=== PATIENT | female | born 1950 | race Caucasian/White ===

== ENCOUNTER 2017-02-28 17:36 | Observation (INO) ==
--- NOTE | 2017-02-28 17:54 | EKG Report ---
Stationary ECG Study [facility] ER Test Date: 02/28/2017 5:54:45 PM Pat Name: FIFI FONG Department: Room: Gender: F [employer] Director: : 1950 Requested by: Bg Cruz Order Number: [id number] Reading MD: SAM FAJARDO Intervals [place] Rate: 96 P: 999 PA: 0 QRS: 51 QRSD: 90 T: 37 QT: 341 QTc: 394 Interpretive Statements ATRIAL FIBRILLATION Electronically Signed On 03-01-17 08:33:50 CDT by SAM FAJARDO [email or web address]
--- NOTE | 2017-02-28 19:07 | XRay Report ---
XR chest 2V Indication: Shortness of breath. Chest 2 views: No comparison. Heart size and mediastinal contour normal. Lungs are hypoinflated with elevation right hemidiaphragm. No discrete infiltrate. Pleural spaces are clear. Impression: Pulmonary hypoinflation. PROCEDURE INTERPRETED AT [facility] DEPARTMENT OF RADIOLOGY Final Report Signed by: Son Powell M.D.
[2017-02-28] MEDS ORDERED: ASPIRIN 325 MG TABLET PO STA (19:09)
[2017-02-28] MEDS ORDERED: ONDANSETRON 4 MG/2 ML VIAL IV STA (19:09)
[2017-02-28] MEDS ORDERED: FUROSEMIDE 100 MG/10 ML VIAL IV STA (19:09)
[2017-02-28] MEDS ORDERED: ALBUTEROL/IPRATROPIUM 3 ML NEB RESP TX STA (19:09)
[2017-02-28] MEDS ORDERED: methylPREDNISolone SOD SUC 125 MG/2 ML VIAL IV STA (19:09)
--- NOTE | 2017-02-28 19:21 | Emergency Department Note ---
Erik Sanford Rolonda, am scribing for, and in the presence of, Carroll Castro MD 19:19. Matthew Sanford Charles R, MD, personally performed the services described in this documentation, ascribed by Nubia Valencia in my presence, and it is both accurate and complete 921 . Arrival - Arrival Chief Complaint: Shortness of Breath Stated Complaint: SOB ED Nursing Triage Note: Pt c/o SOB with palpitations for several weeks but getting worse. Mode of Arrival: Wheelchair Limitations: No Limitations Source: Patient, Old Records Reviewed, RN Notes Reviewed - History of Present Illness HPI Narrative: Pt is a 66 y/o female who presents to the ED via wheelchair with a c/o SOB with an onset of a few weeks that is progressively worsening. Pt has a PMHx of Cardia Dysrhythmia. Pt states that she feels as if her heart has been out of rhythm within the past month and that she has AFib. Pt is f/u by Dr. Saunders who performed a stress test x1 year ago on the pt; results were negative for CAD. Pt states that she cannot ambulate from the bed to the kitchen without SOB occurring but can lay flat and on her side. Pt states that she does not sleep. Pt confirms that she is on Synthroid, Calan, Paxil, and Prednisone. No other complaint/pain reported by the pt. Onset (ago): week(s) Consistency: constant Severity: moderate Allergies/Adverse Reactions: Allergies Allergy/AdvReac Type Severity Reaction Status Date / Time cefuroxime [From Ceftin] Allergy Swelling Verified 02/28/17 17:40 of Lip/Tongue/Throat Cephalosporins Allergy Swelling Verified 02/28/17 17:40 of Lip/Tongue/Throat iodine Allergy RASH Verified 02/28/17 17:40 Oysters Allergy RASH Verified 02/28/17 17:40 povidone-iodine Allergy RASH Verified 02/28/17 17:40 [From Betadine] soap [From Betadine] Allergy RASH Verified 02/28/17 17:40 Sulfa (Sulfonamide Allergy ITCHING Verified 02/28/17 17:40 Antibiotics) Home Medications: Home Medications Medication Instructions Recorded Confirmed Type Levothyroxine Tab [Synthroid Tab] 50 mcg PO DAILY@0700 02/28/17 02/28/17 History Omeprazole 20 mg PO QAM 02/28/17 02/28/17 History PARoxetine [Paxil] 10 mg PO QAM 02/28/17 02/28/17 History Verapamil Sr Tab [Calan Sr Tab] 120 mg PO BEDTIME 02/28/17 02/28/17 History Verapamil Sr Tab [Calan Sr Tab] 240 mg PO QAM 02/28/17 02/28/17 History predniSONE TAB [PredniSONE] 10 mg PO QAM 02/28/17 02/28/17 History Review of System - Review of System 12 point system: reviewed and no additional remarkable complaints except as stated - Review of System Constitutional: Absent: chills Eyes: Absent: discharge Head/Ears/Nose/Throat: Absent: earache Respiratory: Present: respiratory distress (shortness of breath). Absent: cough Cardiovascular: Present: palpitations (feels as if heart is out of rhythm). Absent: chest pain Gastrointestinal: Absent: abdominal pain Genitourinary female: Absent: abnormal menses Musculoskeletal: Absent: arm pain Skin: Absent: rash Neurological: Absent: headache Psychiatric: Absent: anxiety Endocrine: Absent: cold intolerance Hematological/Lymphatic: Absent: easy bleeding Allergic/Immunologic: Absent: facial swelling Medical,Surgical,& Family Hx - Medical History Cardio: History of: Cardiac Dysrhythmia (svt) Musculoskeletal: History of: Musculoskeletal Problems (left humerus fx, shoulder dislocation, and rotator cuff tear) - Surgical History Reproductive Surgeries: Surgical HX of;: Hysterectomy (1987) - Social History Smoking Status: Never smoker Exam Vital Signs: Vital Signs Temperature 97.2 F L 02/28/17 18:38 Pulse Rate 110 H 02/28/17 18:38 Respiratory Rate 19 02/28/17 19:09 Blood Pressure 147/83 02/28/17 18:38 O2 Sat by Pulse Oximetry 95 02/28/17 18:23 - General General appearance: alert, in no apparent distress, obese (morbidly ) - Head Head exam: Present: atraumatic, normocephalic - Eye Eye exam: Present: normal appearance, PERRL, EOMI - ENT ENT exam: Present: normal exam, normal oropharynx, mucous membranes moist. Absent: mucous membranes dry - Neck Neck exam: Present: normal inspection, full ROM. Absent: tenderness - Chest Chest inspection: Present: normal inspection, symmetric chest wall rise. Absent : tenderness - Respiratory Respiratory exam: Present: rales (bilateral ), wheezes. Absent: normal lung sounds bilaterally - Cardiovascular Cardiovascular exam: Present: regular rate, tachycardia (extrasystole), normal heart sounds - Abdominal Exam Abdominal exam: Present: soft, normal bowel sounds. Absent: tenderness - Extremities Exam Extremities exam: Present: normal inspection (gross lesions on both feet), full ROM, pedal edema (2+ edema lower extremities ). Absent: tenderness - Back Exam Back exam: Present: normal inspection, full ROM. Absent: tenderness - Neurological Exam Neurological exam: Present: alert, oriented X3, CN II-XII intact - Psychiatric Psychiatric exam: Present: normal affect, normal mood. Absent: depressed - Skin Skin exam: Present: rash, diaphoresis (sweaty). Absent: warm Course Course Narrative: Patient is a negative workup. Patient has by history what sounds to be a pickwickian obstructive sleep apnea type syndrome. Will place her in the hospital for additional workup. Recommend outpatient sleep study. Patient has palpitation history history of SVT possibly atrial fib. EKG initially read out as atrial fib when I actually examine her which is a different time the second EKG when you feel her radial pulse and listened to her she is actually in sinus rhythm but she was not experience symptoms at this time - Consultations Consultation #1: Hospitalist will admit patient Time: 21:44 Results - Labs CBC & BMP: 02/28/17 19:37 02/28/17 19:37 Lab Results: I have reviewed the patients labs Labs: Laboratory Tests 02/28/17 19:09 ABG pH 7.404 ABG pCO2 40.7 ABG pO2 88.0 ABG HCO3 25.0 ABG Total CO2 21.3 L ABG O2 Saturation 96.6 ABG Base Excess 0.7 FiO2 28.00 Laboratory Tests 02/28/17 19:37 WBC 15.6 H RBC 5.17 Hgb 16.3 H Hct 48.3 H Plt Count 335 Lymph % (Auto) 19.7 L Neut # (Auto) 11.5 H Laboratory Tests 02/28/17 19:37 INR 1.0 PT Patient/Control Mix 10.0 D-Dimer, Quantitative 0.7 Laboratory Tests 02/28/17 19:37 Sodium 140 Potassium 4.5 Chloride 102 Carbon Dioxide 27 Anion Gap 15.5 H BUN 15 GFR Calculation 103 Globulin 3.9 H Albumin/Globulin Ratio 0.8 L Laboratory Tests 02/28/17 02/28/17 02/28/17 19:37 21:00 21:00 B-Natriuretic Peptide 69 Urine pH 5.0 Ur Specific [place] 1.011 Urine Protein Negative Urine Glucose (UA) Negative Urine Ketones Negative Urine Blood Small Urine Nitrate Negative Urine Bilirubin Negative Urine Urobilinogen < 2.0 H Urine Leukocytes Negative Urine RBC <1 Urine WBC 1 Hyaline Casts 2 Urine Opiates Screen Negative Ur Barbiturates Screen Negative Ur Phencyclidine Scrn Negative U Amphetamine/Methamph Negative U Benzodiazepines Scrn Negative U Cocaine Metab Screen Negative U Cannabinoids Screen Negative Disposition Clinical Impression: Exertional dyspnea, Palpitation, Morbid obesity, Chronic lesions foot, Paroxysmal a-fib Case discussed with: patient, patient's family Disposition: Still a Patient Condition: Stable Time of Disposition: 21:49
[2017-02-28 19:31] LABS: ABG Base Excess 0.7 MMOL/L (-2.5-2.5); ABG Oxygen Saturation 96.6 % (95-100); ABG PCO2 40.7 MM HG (35-48); ABG PH 7.404 (7.35-7.45); ABG TCO2 21.3 MMOL/L (23-27); Allen Test Positive
[2017-02-28] MEDS ORDERED: ASPIRIN 325 MG TABLET ONE (19:40)
[2017-02-28] MEDS ORDERED: NITROGLYCERIN 2% OINT 1 INCH/GM PACK TOP ONE (19:40)
[2017-02-28] MEDS: NITROGLYCERIN 2% OINT 1 INCH/GM PACK TOP STA ×2 (19:46→19:51)
[2017-02-28] MEDS ORDERED: FUROSEMIDE 20 MG/2 ML VIAL ONE (19:53)
[2017-02-28] MEDS ORDERED: ONDANSETRON 4 MG/2 ML VIAL ONE (19:53)
[2017-02-28] MEDS ORDERED: FUROSEMIDE 40 MG/4 ML VIAL ONE (19:54)
[2017-02-28] MEDS ORDERED: methylPREDNISolone SOD SUC 125 MG/2 ML VIAL ONE (19:54)
[2017-02-28 20:23] LABS: Basophils # 0.1 10*3/uL (0.0-0.2); Basophils % 0.4 % (0.0-0.8); Eosinophils % 0.3 % (0.00-10.9); Hematocrit 48.3 VOL% (35.7-47.0); Hemoglobin 16.3 GM/DL (12.0-16.0); Immature Granulocytes % 0.7 %; Immature Granulocytes Absolute 0.11 #; Lymphocytes # 3.1 10*3/uL (1.4-4.0); Lymphocytes % 19.7 % (21.3-54.2); Mean Corpuscular HGB Conc 33.7 GM/DL (32-36); Mean Corpuscular Hemoglobin 32 PG (27-34); Mean Corpuscular Volume 93.4 FL (87-102); Mean Platelet Volume 10.5 FL (9.6-12.0); Monocytes # 0.8 10*3/uL (0.11-0.8); Monocytes % 5.1 % (1.7-12.7); Neutrophils # 11.5 10*3/uL (1.4-7.4); Neutrophils % 73.8 % (38.7-73.9); Platelet Count 335 T/CUMM (130-400); Red Blood Count 5.17 MC/CUMM (3.8-5.5); Red Cell Distribution Width 12.7 % (9.3-17.3); White Blood Count 15.6 T/CUMM (4-12)
[2017-02-28 20:38] LABS: D-Dimer 0.7 MG/L FEU
[2017-02-28 20:44] LABS: Alanine Aminotransferase 41 U/L (13-56); Albumin 3.4 G/DL (3.4-5.0); Alkaline Phosphatase 99 U/L (45-117); Aspartate Amino Transferase 27 U/L (0-37); Bilirubin,Total < 0.39 MG/DL (0.2-1.0); Blood Urea Nitrogen 15 MG/DL (7-18); Calcium 9.9 MG/DL (8.5-10.1); Glucose 159 MG/DL (74-106); Magnesium 1.9 MG/DL (1.8-2.4); Osmolality,Calculated 282.4 MOS/KG (273-304); Potassium 4.5 MMOL/L (3.5-5.1); Sodium 140 MMOL/L (136-145); Total Protein 7.3 G/DL (6.4-8.3); Troponin I Only < 0.015 NG/ML (0.00-0.045)
[2017-02-28 21:10] LABS: Apearance,Urine CLEAR (Clear); Bacteria,Urine Occasional /HPF (Few); Bilirubin,Urine Negative (Negative); Blood, Urine Small mg/dL (Negative); Glucose,Urine (UA) Negative (Negative); Hyaline Casts,Urine 2 /LPF (0-3); Ketones,Urine Negative (Negative); Mucus,Urine Occasional /LPF (Occasional); Nitrite,Urine Negative (Negative); Protein,Urine Negative; RBC,Urine <1 /HPF (0-4); Squamous Epithelial Cell,Urine Occasional /HPF (0-10); Urine Color Yellow (Yellow); Urine Specific Gravity 1.011 (1.001-1.035); Urine Urobilinogen < 2.0 EU/DL (0.2-1.0); WBC,Urine 1 /HPF (0-6)
[2017-02-28 21:19] LABS: Barbiturates Screen,Urine Negative (Negative); Benzodiazepines Screen,Urine Negative (Negative); Cannabinoid Screen,Urine Negative (Negative); Opiate Screen,Urine Negative (Negative); Phencyclidine Screen,Urine Negative (Negative)
[2017-02-28] MEDS ORDERED: ONDANSETRON 4 MG/2 ML VIAL IV PRN (22:32)
[2017-02-28] MEDS ORDERED: ACETAMINOPHEN 325 MG TABLET PO PRN (22:32)
--- NOTE | 2017-02-28 22:47 | Hospitalist History & Physical ---
Assessment and Plan (1) Exertional dyspnea Status: Acute Current Visit: Yes (2) Palpitation Status: Acute Current Visit: Yes (3) Morbid obesity Status: Acute Current Visit: Yes (4) Paroxysmal a-fib Status: Acute Assessment and plan: Plan for this patient will be admission to our service. Will consult cardiology and sleep medicine. I want her heart evaluated with echo. Should be monitored on telemetry. This could be obesity hypoventilation syndrome. She has been a patient of Dr. Saunders. She does give a history of immune disease for which she is on prednisone daily. She reports that her white count is always elevated and that is been evaluated by her outside physician. Reevaluate patient in the morning check her thyroid and adjust plans as appropriate Current Visit: Yes History of Present Illness Chief complaint: Exertional dyspnea History of present illness: Ms. Rouse is a 66 year old female with past medical history significant for hypothyroid, reflux, hiatal hernia, SVT, immune deficiency, depression and anxiety who comes to our hospital tonight. Patient reports that she has been short of breath times several weeks and is progressively increased to a point that limits her activity. She feels that her heart is racing at times. She does have a history of SVT and she is on verapamil for this. This heart racing occurs both with exertion and rest. Valsalva maneuver does not stop it. She does not injure to chest pain. She came up to our hospital for further evaluation since her symptoms are getting worse. I was consulted to admit her through the emergency room. Home Medications Medication Instructions Recorded Confirmed Type Levothyroxine Tab [Synthroid Tab] 50 mcg PO DAILY@0700 02/28/17 02/28/17 History Omeprazole 20 mg PO QAM 02/28/17 02/28/17 History PARoxetine [Paxil] 10 mg PO QAM 02/28/17 02/28/17 History Verapamil Sr Tab [Calan Sr Tab] 120 mg PO BEDTIME 02/28/17 02/28/17 History Verapamil Sr Tab [Calan Sr Tab] 240 mg PO QAM 02/28/17 02/28/17 History predniSONE TAB [PredniSONE] 10 mg PO QAM 02/28/17 02/28/17 History Allergies Allergy/AdvReac Type Severity Reaction Status Date / Time cefuroxime [From Ceftin] Allergy Swelling Verified 02/28/17 17:40 of Lip/Tongue/Throat Cephalosporins Allergy Swelling Verified 02/28/17 17:40 of Lip/Tongue/Throat iodine Allergy RASH Verified 02/28/17 17:40 Oysters Allergy RASH Verified 02/28/17 17:40 povidone-iodine Allergy RASH Verified 02/28/17 17:40 [From Betadine] soap [From Betadine] Allergy RASH Verified 02/28/17 17:40 Sulfa (Sulfonamide Allergy ITCHING Verified 02/28/17 17:40 Antibiotics) Medical,Surgical,& Family Hx - Medical History Cardio: History of: Cardiac Dysrhythmia (svt) Musculoskeletal: History of: Musculoskeletal Problems (left humerus fx, shoulder dislocation, and rotator cuff tear) - Surgical History Reproductive Surgeries: Surgical HX of;: Hysterectomy (1987) - Family History Family History: Reports;: Family Cancer, Family Heart Disease, Family Stroke - Social History Smoking Status: Never smoker Frequency of Alcohol Use: None Type of Drug Use: None 12 point system: reviewed and no additional remarkable complaints except as stated Exam - Constitutional Vitals: Period Temp Pulse Resp BP Sys/Rowe Pulse Ox Last 24 Hr 97.2 F-98.8 F 104-110 19-24 130-147/83-87 95-96 General appearance: morbidly obese - Head Head exam: Present: normal inspection - Eye Eye exam: Present: EOMI Pupils: Present: CORRY - ENT ENT exam: Present: normal exam - Neck Neck exam: Present: normal inspection - Respiratory Respiratory exam: Present: clear to auscultation bilaterally - Cardiovascular Cardiovascular exam: Present: regular rate and rhythm - GI/Abdominal GI/Abdominal exam: Present: normal bowel sounds - Extremities Exam Extremities exam: Present: normal inspection - Back Exam Back exam: Present: normal inspection - Neurological Exam Neurological exam: Present: alert, oriented X3 - Psychiatric Psychiatric exam: Present: normal affect, normal mood - Skin Skin exam: Present: normal color Results - Labs CBC & BMP: 02/28/17 19:37 02/28/17 19:37
[2017-02-28] MEDS ORDERED: ENOXAPARIN 40 MG/0.4 ML SYRINGE SUBCUT SCH (23:00)
[2017-03-01] MEDS: VERAPAMIL SR 120 MG TABLET PO SCH ×2 (00:27→00:31)
[2017-03-01 05:27] LABS: Basophils % 0.2 % (0.0-0.8); Hematocrit 46.8 VOL% (35.7-47.0); Hemoglobin 15.7 GM/DL (12.0-16.0); Immature Granulocytes % 0.8 %; Immature Granulocytes Absolute 0.08 #; Lymphocytes # 1.1 10*3/uL (1.4-4.0); Lymphocytes % 10.8 % (21.3-54.2); Mean Corpuscular HGB Conc 33.5 GM/DL (32-36); Mean Corpuscular Hemoglobin 32 PG (27-34); Mean Corpuscular Volume 94.5 FL (87-102); Mean Platelet Volume 10.7 FL (9.6-12.0); Monocytes # 0.1 10*3/uL (0.11-0.8); Monocytes % 0.7 % (1.7-12.7); Neutrophils # 8.7 10*3/uL (1.4-7.4); Neutrophils % 87.5 % (38.7-73.9); Platelet Count 326 T/CUMM (130-400); Red Blood Count 4.95 MC/CUMM (3.8-5.5); Red Cell Distribution Width 12.8 % (9.3-17.3); White Blood Count 9.9 T/CUMM (4-12)
[2017-03-01 06:06] LABS: Alanine Aminotransferase 39 U/L (13-56); Albumin 3.4 G/DL (3.4-5.0); Alkaline Phosphatase 94 U/L (45-117); Aspartate Amino Transferase 18 U/L (0-37); Bilirubin,Total < 0.39 MG/DL (0.2-1.0); Blood Urea Nitrogen 18 MG/DL (7-18); Calcium 9.9 MG/DL (8.5-10.1); Cholesterol 186 MG/DL (50-200); Glucose 288 MG/DL (74-106); HDL Cholesterol 48 MG/DL (40-60); Osmolality,Calculated 289.5 MOS/KG (273-304); Potassium 4.9 MMOL/L (3.5-5.1); Risk Ratio 3.88; Sodium 139 MMOL/L (136-145); Thyroid Stimulating Hormone 0.177 uIU/ml (0.358-3.74); Total Protein 7.3 G/DL (6.4-8.3); Triglycerides 114 MG/DL (2-150); VLDL CHOLESTEROL 22.8 MG/DL
[2017-03-01] MEDS ORDERED: LEVOTHYROXINE 50 MCG TABLET PO SCH (07:00)
--- NOTE | 2017-03-01 08:55 | Cardiology Consult Note ---
Addendum entered and electronically signed by Maryellen Carter NP 03/01/17 09:02 : Hemoglobin of 7.0 noted. Patient is now newly diagnosed with diabetes. Patient will need diabetic education. Will defer management of this to attending. Original Note: <Maryellen Carter - Last Filed: 03/01/17 08:23> History of Present Illness - Data of Consult Patient: known to practice within the last 3 years Consult date: 03/01/17 Requesting Physician: Son Maldonado - Consult Narrative Reason for consult: afib History of present illness: [facility] Associate: Dr. Saunders Ms. Rouse is a 66 year old female without known history of coronary artery disease who has been seen in the past by Dr. Fatuma Saunders. She has cardiac risk factors significant for obesity, sedentary lifestyle and advanced age. She reports that she is a lifetime non-smoker. No significant family history of coronary artery disease. She has a past medical history of hypothyroidism, SVT, atrial flutter, GERD, anxiety and depression. She was evaluated by Dr. Fatuma Saunders in the cardiology clinic December 2015. At that time, she underwent cardiac stress testing which did not reveal any reversible cardiac ischemia. Echocardiogram November 2015 revealed normal LV chamber size, wall motion and systolic function with ejection fraction of 65%. Concentric left ventricular hypertrophy and impaired LV relaxation. During her last visit with Dr. Fatuma Saunders, her verapamil was increased. This helped her palpitations for several months. However however, several months later her palpitations and shortness of breath returned and has progressively worsened. She has not followed up with Dr. Fatuma Saunders since December 2015. Patient presented to the emergency department yesterday evening with complaints of shortness of breath and heart racing. She reports that she has been feeling that she has been in and out of rhythm for several months. She reports that she mainly feels that she is out of rhythm with activity. Normally, she can convert herself back to normal sinus rhythm with cough. However, lately she has not been able to do this. She reports severe shortness of breath as well, mainly with exertion. This has also progressively worsened over the past several months and now limits her activity. She reports shortness of breath with just walking from room to room in her house. She denies any chest pain, heaviness or tightness associated with this. She denies fever, chills, cough, abdominal pain, nausea, vomiting, lower extremity edema, orthopnea and PND. Due to her progressive symptoms, she decided she needed to be further evaluated in the emergency department. Upon arrival to the ER, she was noted to be in atrial fibrillation with a controlled ventricular response. Heart rates in the 90s. She was then admitted under hospitalist service and also telemetry unit. Cardiology has been consulted to assist with her fibrillation. Of note, patient reports snoring and excessive daytime sleepiness. This is concerning for underlying sleep apnea. Echo has been consulted per hospital medicine. Patient was seen and examined on the telemetry unit. She is currently sitting up on the side of the bed eating breakfast in no acute distress. Not requiring oxygen. Per pulp grinder and blender she is in normal sinus rhythm with heart rates in the 90s. Chest x-ray reveals pulmonary hyperinflation. Electrolytes are within normal limits. Patient has now spontaneously converted to normal sinus rhythm. At this point, will continue patient's home dosage of verapamil as patient is now converted back to a normal sinus rhythm. Will monitor patient on the pulp grinder and blender. Patient continues to go in and out of rhythm, we will consider changing patient's medication regimen. I will discuss this with Dr. Moses. Chads vasc score of 1. Patient does not report any contraindications to anticoagulation. I will further discuss with Dr. Moses and await his additional recommendations regarding the need for anticoagulation. ASSESSMENT/PLAN: 1. ATRIAL FIBRILLATION - Appears to be paroxysmal atrial fibrillation. Patient has now spontaneously converted to normal sinus rhythm. At this point, will continue patient's home dosage of verapamil as patient is now converted back to a normal sinus rhythm. Will monitor patient on the pulp grinder and blender. Patient continues to go in and out of rhythm, we will consider changing patient's medication regimen. I will discuss this with Dr. Moses. Chads vasc score of 1. Patient does not report any contraindications to anticoagulation. I will further discuss with Dr. Moses and await his additional recommendations regarding the need for anticoagulation. 2. SHORTNESS OF BREATH - Most likely secondary to patient's cardiac arrhythmias. I will order an echocardiogram in order to reevaluate patient's LV function as been over a year since her last echocardiogram. 3. HYPOTHYROIDISM - Management per attending. 4. GERD - Clinically stable. Continue PPI. 5. ANXIETY - Continue current plan of care. 5. DEPRESSION - Continue current plan of care. 6. HISTORY OF SVT - Continue verapamil. Monitor per telemetry. No episodes of SVT noted this hospitalization. 7. SLEEP DISORDER - Patient has admissions concerning for sleep apnea. Dr. Alves has been consulted. This could very well be contributing to patient' s cardiac arrhythmias. We will discuss with Dr. Moses and await his additional recommendations. CC: Costa Michaud MD - Home Medications and Allergies Home Medications: Home Medications Medication Instructions Recorded Confirmed Type Levothyroxine Tab [Synthroid Tab] 50 mcg PO DAILY@0700 02/28/17 02/28/17 History Omeprazole 20 mg PO QAM 02/28/17 02/28/17 History PARoxetine [Paxil] 10 mg PO QAM 02/28/17 02/28/17 History Verapamil Sr Tab [Calan Sr Tab] 120 mg PO BEDTIME 02/28/17 02/28/17 History Verapamil Sr Tab [Calan Sr Tab] 240 mg PO QAM 02/28/17 02/28/17 History predniSONE TAB [PredniSONE] 10 mg PO QAM 02/28/17 02/28/17 History Allergies/Adverse Reactions: Allergies Allergy/AdvReac Type Severity Reaction Status Date / Time cefuroxime [From Ceftin] Allergy Swelling Verified 02/28/17 17:40 of Lip/Tongue/Throat Cephalosporins Allergy Swelling Verified 02/28/17 17:40 of Lip/Tongue/Throat iodine Allergy RASH Verified 02/28/17 17:40 Oysters Allergy RASH Verified 02/28/17 17:40 povidone-iodine Allergy RASH Verified 02/28/17 17:40 [From Betadine] soap [From Betadine] Allergy RASH Verified 02/28/17 17:40 Sulfa (Sulfonamide Allergy ITCHING Verified 02/28/17 17:40 Antibiotics) - Constitutional Constitutional: Present: daytime sleepiness, fatigue, lethargy, stops breathing during sleep, weakness. Absent: chills, frequent falls - Cardiovascular Cardiovascular: Present: dyspnea, dyspnea on exertion, palpitations. Absent: chest pain at rest, chest pain with activity, claudication, diaphoresis, edema, radiating jaw, neck or arm pain, lightheadedness, orthopnea, PND - Respiratory Respiratory: Present: dyspnea, dyspnea on exertion, snoring. Absent: cough, hemoptysis, wheezing, pain on inspiration, change in phlegm color - Gastrointestinal Gastrointestinal: Absent: abdominal pain, change in bowel habits, coffee ground emesis, diarrhea, heartburn, hematemesis, hematochezia, loose stools, melena, nausea, vomiting - Neurological Neurological: Absent: abnormal gait, abnormal speech, behavioral changes, dizziness, frequent falls, headache(s), numbness, paresthesias, syncope - Psychiatric Psychiatric: Present: anxiety, depression - Hematologic/Lymphatic Hematologic/Lymphatic: Absent: easy bleeding, easy bruising, lymphadenopathy Medical,Surgical,& Family Hx - Medical History Cardio: History of: Cardiac Dysrhythmia (svt) Psychological: History of: Anxiety Disorders, Depression Endocrine: History of: Thyroid Disorder (HYPO) Gastrointestinal: History of: GERD Musculoskeletal: History of: Musculoskeletal Problems (left humerus fx, shoulder dislocation, and rotator cuff tear) - Surgical History Reproductive Surgeries: Surgical HX of;: Hysterectomy (1987) - Family History Family History: Reports;: Family Cancer, Family Stroke - Social History Smoking Status: Never smoker Frequency of Alcohol Use: None Type of Drug Use: None Marital Status: Single Lives With:: Spouse Functional capacity: independent ambulation Physical Examination Vital Signs Temp Pulse Resp BP Pulse Ox 97.2 F L 110 H 24 147/83 96 02/28/17 17:40 02/28/17 17:40 02/28/17 17:40 02/28/17 17:40 02/28/17 17:40 Other: General: Appears well with no apparent distress. Pleasant and cooperative. Appears comfortable. Obese. HEENT: PERRL, normocephalic, atraumatic. Mucous membranes moist. No jaundice noted. Conjunctiva moist and clear, sclerae anicteric Neck: No JVD/HJR, no thyromegaly or lymphadenopathy noted. No carotid bruit appreciated Cardiac: Regular rate and rhythm. No murmur rub or gallop. Lungs: Clear to auscultation without accessory muscle use to assist the respiratory pattern. Not requiring oxygen. Abdomen: Soft, bowel sounds normoactive. Nontender and nondistended. Extremities: No clubbing, cyanosis noted. No edema noted. Upper extremity pulses 2+. Lower extremity pulses 2+. Capillary refill less than 3 seconds. Skin: No unusual lesions or rashes. No skin breakdown appreciated. Neuro: Awake, alert and oriented 3. Moves all extremities well without hemiparesis or paralysis. No essential tremor is appreciated. Result/EKG - Labs CBC & BMP: 03/01/17 04:54 03/01/17 04:54 Lab Results: I have reviewed the past 24 hour labs Labs: Laboratory Results - last 24 hr 02/28/17 02/28/17 02/28/17 19:09 19:37 19:37 WBC 15.6 H RBC 5.17 Hgb 16.3 H Hct 48.3 H MCV 93.4 MCH 32 MCHC 33.7 RDW 12.7 Plt Count 335 MPV 10.5 Neut % (Auto) 73.8 Lymph % (Auto) 19.7 L [place] % (Auto) 5.1 Eos % (Auto) 0.3 Baso % (Auto) 0.4 Neut # (Auto) 11.5 H Lymph # (Auto) 3.1 [place] # (Auto) 0.8 Eos # (Auto) 0.0 Baso # (Auto) 0.1 Immature Gran % 0.7 Nucleated RBC % 0.0 Immature Gran # 0.11 Nucleated RBCs # 0.00 INR 1.0 PT Patient/Control Mix 10.0 D-Dimer, Quantitative 0.7 ABG pH 7.404 ABG pCO2 40.7 ABG pO2 88.0 ABG HCO3 25.0 ABG Total CO2 21.3 L ABG O2 Saturation 96.6 ABG Base Excess 0.7 FiO2 28.00 Sodium Potassium Chloride Carbon Dioxide Anion Gap BUN Creatinine GFR Calculation BUN/Creatinine Ratio Glucose Hemoglobin A1c Calculated Osmolality Calcium Magnesium Total Bilirubin AST ALT Alkaline Phosphatase Troponin I B-Natriuretic Peptide Total Protein Albumin Globulin Albumin/Globulin Ratio Triglycerides Cholesterol LDL Cholesterol VLDL Cholesterol HDL Cholesterol Heart Disease Risk Ratio Free T4 TSH 3rd Generation Urine Color Urine Appearance Urine pH Ur Specific [place] Urine Protein Urine Glucose (UA) Urine Ketones Urine Blood Urine Nitrate Urine Bilirubin Urine Urobilinogen Urine Leukocytes Urine RBC Urine WBC Ur Squamous Epith Cells Urine Bacteria Hyaline Casts Urine Mucus Ur Culture Indicated? Urine Opiates Screen Ur Barbiturates Screen Ur Phencyclidine Scrn U Amphetamine/Methamph U Benzodiazepines Scrn U Cocaine Metab Screen U Cannabinoids Screen 02/28/17 02/28/17 02/28/17 19:37 19:37 21:00 WBC RBC Hgb Hct MCV MCH MCHC RDW Plt Count MPV Neut % (Auto) Lymph % (Auto) [place] % (Auto) Eos % (Auto) Baso % (Auto) Neut # (Auto) Lymph # (Auto) [place] # (Auto) Eos # (Auto) Baso # (Auto) Immature Gran % Nucleated RBC % Immature Gran # Nucleated RBCs # INR PT Patient/Control Mix D-Dimer, Quantitative ABG pH ABG pCO2 ABG pO2 ABG HCO3 ABG Total CO2 ABG O2 Saturation ABG Base Excess FiO2 Sodium 140 Potassium 4.5 Chloride 102 Carbon Dioxide 27 Anion Gap 15.5 H BUN 15 Creatinine 0.90 GFR Calculation 103 BUN/Creatinine Ratio 16.00 Glucose 159 H Hemoglobin A1c Calculated Osmolality 282.4 Calcium 9.9 Magnesium 1.9 Total Bilirubin < 0.39 AST 27 ALT 41 Alkaline Phosphatase 99 Troponin I < 0.015 B-Natriuretic Peptide 69 Total Protein 7.3 Albumin 3.4 Globulin 3.9 H Albumin/Globulin Ratio 0.8 L Triglycerides Cholesterol LDL Cholesterol VLDL Cholesterol HDL Cholesterol Heart Disease Risk Ratio Free T4 TSH 3rd Generation Urine Color Yellow Urine Appearance Clear Urine pH 5.0 Ur Specific [place] 1.011 Urine Protein Negative Urine Glucose (UA) Negative Urine Ketones Negative Urine Blood Small Urine Nitrate Negative Urine Bilirubin Negative Urine Urobilinogen < 2.0 H Urine Leukocytes Negative Urine RBC <1 Urine WBC 1 Ur Squamous Epith Cells Occasional Urine Bacteria Occasional Hyaline Casts 2 Urine Mucus Occasional Ur Culture Indicated? Not indicated Urine Opiates Screen Ur Barbiturates Screen Ur Phencyclidine Scrn U Amphetamine/Methamph U Benzodiazepines Scrn U Cocaine Metab Screen U Cannabinoids Screen 02/28/17 03/01/17 03/01/17 21:00 04:54 04:54 WBC 9.9 D RBC 4.95 Hgb 15.7 Hct 46.8 MCV 94.5 MCH 32 MCHC 33.5 RDW 12.8 Plt Count 326 MPV 10.7 Neut % (Auto) 87.5 H Lymph % (Auto) 10.8 L [place] % (Auto) 0.7 L Eos % (Auto) 0.0 Baso % (Auto) 0.2 Neut # (Auto) 8.7 H Lymph # (Auto) 1.1 L [place] # (Auto) 0.1 L Eos # (Auto) 0.0 Baso # (Auto) 0.0 Immature Gran % 0.8 Nucleated RBC % 0.0 Immature Gran # 0.08 Nucleated RBCs # 0.00 INR PT Patient/Control Mix D-Dimer, Quantitative ABG pH ABG pCO2 ABG pO2 ABG HCO3 ABG Total CO2 ABG O2 Saturation ABG Base Excess FiO2 Sodium 139 Potassium 4.9 Chloride 100 Carbon Dioxide 29 Anion Gap 14.9 BUN 18 Creatinine 1.00 GFR Calculation 91 BUN/Creatinine Ratio 18.00 Glucose 288 H Hemoglobin A1c Calculated Osmolality 289.5 Calcium 9.9 Magnesium Total Bilirubin < 0.39 AST 18 ALT 39 Alkaline Phosphatase 94 Troponin I B-Natriuretic Peptide Total Protein 7.3 Albumin 3.4 Globulin 3.9 H Albumin/Globulin Ratio 0.8 L Triglycerides 114 Cholesterol 186 LDL Cholesterol 128.0 VLDL Cholesterol 22.8 HDL Cholesterol 48 Heart Disease Risk Ratio 3.88 Free T4 TSH 3rd Generation 0.177 L Urine Color Urine Appearance Urine pH Ur Specific [place] Urine Protein Urine Glucose (UA) Urine Ketones Urine Blood Urine Nitrate Urine Bilirubin Urine Urobilinogen Urine Leukocytes Urine RBC Urine WBC Ur Squamous Epith Cells Urine Bacteria Hyaline Casts Urine Mucus Ur Culture Indicated? Urine Opiates Screen Negative Ur Barbiturates Screen Negative Ur Phencyclidine Scrn Negative U Amphetamine/Methamph Negative U Benzodiazepines Scrn Negative U Cocaine Metab Screen Negative U Cannabinoids Screen Negative 03/01/17 03/01/17 04:54 04:54 WBC RBC Hgb Hct MCV MCH MCHC RDW Plt Count MPV Neut % (Auto) Lymph % (Auto) [place] % (Auto) Eos % (Auto) Baso % (Auto) Neut # (Auto) Lymph # (Auto) [place] # (Auto) Eos # (Auto) Baso # (Auto) Immature Gran % Nucleated RBC % Immature Gran # Nucleated RBCs # INR PT Patient/Control Mix D-Dimer, Quantitative ABG pH ABG pCO2 ABG pO2 ABG HCO3 ABG Total CO2 ABG O2 Saturation ABG Base Excess FiO2 Sodium Potassium Chloride Carbon Dioxide Anion Gap BUN Creatinine GFR Calculation BUN/Creatinine Ratio Glucose Hemoglobin A1c 7.0 H Calculated Osmolality Calcium Magnesium Total Bilirubin AST ALT Alkaline Phosphatase Troponin I B-Natriuretic Peptide Total Protein Albumin Globulin Albumin/Globulin Ratio Triglycerides Cholesterol LDL Cholesterol VLDL Cholesterol HDL Cholesterol Heart Disease Risk Ratio Free T4 1.20 TSH 3rd Generation Urine Color Urine Appearance Urine pH Ur Specific [place] Urine Protein Urine Glucose (UA) Urine Ketones Urine Blood Urine Nitrate Urine Bilirubin Urine Urobilinogen Urine Leukocytes Urine RBC Urine WBC Ur Squamous Epith Cells Urine Bacteria Hyaline Casts Urine Mucus Ur Culture Indicated? Urine Opiates Screen Ur Barbiturates Screen Ur Phencyclidine Scrn U Amphetamine/Methamph U Benzodiazepines Scrn U Cocaine Metab Screen U Cannabinoids Screen - EKG EKG results: interpreted by me EKG shows: atrial fibrillation <Charlene Moses - Last Filed: 03/01/17 13:04> Assessment and Plan - Time spent with patient Time spent with patient: Less than 30 minutes (1) Exertional dyspnea Status: Chronic Current Visit: Yes (2) Palpitation Status: Chronic Current Visit: Yes (3) Morbid obesity Status: Acute Current Visit: Yes (4) Paroxysmal a-fib Status: Acute Current Visit: Yes (5) Unspecified sleep apnea Status: Chronic Current Visit: Yes History of Present Illness - Consult Narrative History of present illness: Ms. Rouse is a 66 year old female with history of PSVT who has morbid obesity with BMI of 52 who now has been found to have PAF. She probably has ROYCE and OHS. She had a normal stress test at [facility] in the 12/[address] Saunders. Her TTE has 3 chamber cardiac enlargement. She has a CHADS Score of 1 at this time but given her age and left atrial size, I think it is best to add anticoagulation. From a cardiovascular standpoint she needs weight loss and TLC, AV jasmin blockade and follow up with Dr. Saunders. She MUST lose weight. CC: Costa Michaud MD Physical Examination Vital Signs Temp Pulse Resp BP Pulse Ox 97.2 F L 110 H 24 147/83 96 02/28/17 17:40 02/28/17 17:40 02/28/17 17:40 02/28/17 17:40 02/28/17 17:40 Morbidly obese. She has chronic brawny edematous changes with hemosiderin deposition in her pretibial and lower extremity region. She does not have any edema at this time. Cardiac tones are very distant and indistinct. Lungs are clear ASA class IV airway Result/EKG - Labs CBC & BMP: 03/01/17 04:54 03/01/17 04:54 Labs: Laboratory Results - last 24 hr 02/28/17 02/28/17 02/28/17 19:09 19:37 19:37 WBC 15.6 H RBC 5.17 Hgb 16.3 H Hct 48.3 H MCV 93.4 MCH 32 MCHC 33.7 RDW 12.7 Plt Count 335 MPV 10.5 Neut % (Auto) 73.8 Lymph % (Auto) 19.7 L [place] % (Auto) 5.1 Eos % (Auto) 0.3 Baso % (Auto) 0.4 Neut # (Auto) 11.5 H Lymph # (Auto) 3.1 [place] # (Auto) 0.8 Eos # (Auto) 0.0 Baso # (Auto) 0.1 Immature Gran % 0.7 Nucleated RBC % 0.0 Immature Gran # 0.11 Nucleated RBCs # 0.00 INR 1.0 PT Patient/Control Mix 10.0 D-Dimer, Quantitative 0.7 ABG pH 7.404 ABG pCO2 40.7 ABG pO2 88.0 ABG HCO3 25.0 ABG Total CO2 21.3 L ABG O2 Saturation 96.6 ABG Base Excess 0.7 FiO2 28.00 Sodium Potassium Chloride Carbon Dioxide Anion Gap BUN Creatinine GFR Calculation BUN/Creatinine Ratio Glucose Hemoglobin A1c Calculated Osmolality Calcium Magnesium Total Bilirubin AST ALT Alkaline Phosphatase Troponin I B-Natriuretic Peptide Total Protein Albumin Globulin Albumin/Globulin Ratio Triglycerides Cholesterol LDL Cholesterol VLDL Cholesterol HDL Cholesterol Heart Disease Risk Ratio Free T4 TSH 3rd Generation Urine Color Urine Appearance Urine pH Ur Specific [place] Urine Protein Urine Glucose (UA) Urine Ketones Urine Blood Urine Nitrate Urine Bilirubin Urine Urobilinogen Urine Leukocytes Urine RBC Urine WBC Ur Squamous Epith Cells Urine Bacteria Hyaline Casts Urine Mucus Ur Culture Indicated? Urine Opiates Screen Ur Barbiturates Screen Ur Phencyclidine Scrn U Amphetamine/Methamph U Benzodiazepines Scrn U Cocaine Metab Screen U Cannabinoids Screen 02/28/17 02/28/17 02/28/17 19:37 19:37 21:00 WBC RBC Hgb Hct MCV MCH MCHC RDW Plt Count MPV Neut % (Auto) Lymph % (Auto) [place] % (Auto) Eos % (Auto) Baso % (Auto) Neut # (Auto) Lymph # (Auto) [place] # (Auto) Eos # (Auto) Baso # (Auto) Immature Gran % Nucleated RBC % Immature Gran # Nucleated RBCs # INR PT Patient/Control Mix D-Dimer, Quantitative ABG pH ABG pCO2 ABG pO2 ABG HCO3 ABG Total CO2 ABG O2 Saturation ABG Base Excess FiO2 Sodium 140 Potassium 4.5 Chloride 102 Carbon Dioxide 27 Anion Gap 15.5 H BUN 15 Creatinine 0.90 GFR Calculation 103 BUN/Creatinine Ratio 16.00 Glucose 159 H Hemoglobin A1c Calculated Osmolality 282.4 Calcium 9.9 Magnesium 1.9 Total Bilirubin < 0.39 AST 27 ALT 41 Alkaline Phosphatase 99 Troponin I < 0.015 B-Natriuretic Peptide 69 Total Protein 7.3 Albumin 3.4 Globulin 3.9 H Albumin/Globulin Ratio 0.8 L Triglycerides Cholesterol LDL Cholesterol VLDL Cholesterol HDL Cholesterol Heart Disease Risk Ratio Free T4 TSH 3rd Generation Urine Color Yellow Urine Appearance Clear Urine pH 5.0 Ur Specific [place] 1.011 Urine Protein Negative Urine Glucose (UA) Negative Urine Ketones Negative Urine Blood Small Urine Nitrate Negative Urine Bilirubin Negative Urine Urobilinogen < 2.0 H Urine Leukocytes Negative Urine RBC <1 Urine WBC 1 Ur Squamous Epith Cells Occasional Urine Bacteria Occasional Hyaline Casts 2 Urine Mucus Occasional Ur Culture Indicated? Not indicated Urine Opiates Screen Ur Barbiturates Screen Ur Phencyclidine Scrn U Amphetamine/Methamph U Benzodiazepines Scrn U Cocaine Metab Screen U Cannabinoids Screen 02/28/17 03/01/17 03/01/17 21:00 04:54 04:54 WBC 9.9 D RBC 4.95 Hgb 15.7 Hct 46.8 MCV 94.5 MCH 32 MCHC 33.5 RDW 12.8 Plt Count 326 MPV 10.7 Neut % (Auto) 87.5 H Lymph % (Auto) 10.8 L [place] % (Auto) 0.7 L Eos % (Auto) 0.0 Baso % (Auto) 0.2 Neut # (Auto) 8.7 H Lymph # (Auto) 1.1 L [place] # (Auto) 0.1 L Eos # (Auto) 0.0 Baso # (Auto) 0.0 Immature Gran % 0.8 Nucleated RBC % 0.0 Immature Gran # 0.08 Nucleated RBCs # 0.00 INR PT Patient/Control Mix D-Dimer, Quantitative ABG pH ABG pCO2 ABG pO2 ABG HCO3 ABG Total CO2 ABG O2 Saturation ABG Base Excess FiO2 Sodium 139 Potassium 4.9 Chloride 100 Carbon Dioxide 29 Anion Gap 14.9 BUN 18 Creatinine 1.00 GFR Calculation 91 BUN/Creatinine Ratio 18.00 Glucose 288 H Hemoglobin A1c Calculated Osmolality 289.5 Calcium 9.9 Magnesium Total Bilirubin < 0.39 AST 18 ALT 39 Alkaline Phosphatase 94 Troponin I B-Natriuretic Peptide Total Protein 7.3 Albumin 3.4 Globulin 3.9 H Albumin/Globulin Ratio 0.8 L Triglycerides 114 Cholesterol 186 LDL Cholesterol 128.0 VLDL Cholesterol 22.8 HDL Cholesterol 48 Heart Disease Risk Ratio 3.88 Free T4 TSH 3rd Generation 0.177 L Urine Color Urine Appearance Urine pH Ur Specific [place] Urine Protein Urine Glucose (UA) Urine Ketones Urine Blood Urine Nitrate Urine Bilirubin Urine Urobilinogen Urine Leukocytes Urine RBC Urine WBC Ur Squamous Epith Cells Urine Bacteria Hyaline Casts Urine Mucus Ur Culture Indicated? Urine Opiates Screen Negative Ur Barbiturates Screen Negative Ur Phencyclidine Scrn Negative U Amphetamine/Methamph Negative U Benzodiazepines Scrn Negative U Cocaine Metab Screen Negative U Cannabinoids Screen Negative 03/01/17 03/01/17 03/01/17 04:54 04:54 10:09 WBC RBC Hgb Hct MCV MCH MCHC RDW Plt Count MPV Neut % (Auto) Lymph % (Auto) [place] % (Auto) Eos % (Auto) Baso % (Auto) Neut # (Auto) Lymph # (Auto) [place] # (Auto) Eos # (Auto) Baso # (Auto) Immature Gran % Nucleated RBC % Immature Gran # Nucleated RBCs # INR PT Patient/Control Mix D-Dimer, Quantitative 0.8 ABG pH ABG pCO2 ABG pO2 ABG HCO3 ABG Total CO2 ABG O2 Saturation ABG Base Excess FiO2 Sodium Potassium Chloride Carbon Dioxide Anion Gap BUN Creatinine GFR Calculation BUN/Creatinine Ratio Glucose Hemoglobin A1c 7.0 H Calculated Osmolality Calcium Magnesium Total Bilirubin AST ALT Alkaline Phosphatase Troponin I B-Natriuretic Peptide Total Protein Albumin Globulin Albumin/Globulin Ratio Triglycerides Cholesterol LDL Cholesterol VLDL Cholesterol HDL Cholesterol Heart Disease Risk Ratio Free T4 1.20 TSH 3rd Generation Urine Color Urine Appearance Urine pH Ur Specific [place] Urine Protein Urine Glucose (UA) Urine Ketones Urine Blood Urine Nitrate Urine Bilirubin Urine Urobilinogen Urine Leukocytes Urine RBC Urine WBC Ur Squamous Epith Cells Urine Bacteria Hyaline Casts Urine Mucus Ur Culture Indicated? Urine Opiates Screen Ur Barbiturates Screen Ur Phencyclidine Scrn U Amphetamine/Methamph U Benzodiazepines Scrn U Cocaine Metab Screen U Cannabinoids Screen
[2017-03-01] MEDS ORDERED: PANTOPRAZOLE 40 MG TABLET PO SCH (09:00)
[2017-03-01] MEDS ORDERED: VERAPAMIL SR 240 MG TABLET PO SCH (09:00)
[2017-03-01] MEDS ORDERED: PARoxetine 10 MG TABLET PO SCH (09:00)
[2017-03-01] MEDS ORDERED: predniSONE 10 MG TABLET PO SCH (09:00)
[2017-03-01 11:38] VITALS: BP 160/81
--- NOTE | 2017-03-01 12:45 | Sleep Medicine Consult ---
Assessment and Plan (1) Unspecified sleep apnea Status: Acute Assessment and plan: This patient presents with new onset atrial fibrillation and does have risk factors for sleep apnea and does snore. She also had a stop bang score of 5 and an [place] sleepiness score 15. I do have a high suspicion that she may have obstructive sleep apnea. I have recommended sleep evaluation but she declines due to lack of insurance. She states that she will have Medicare in August and would like to postpone her evaluation until then. I told her that we could do an HST evaluation on her either while hospitalized or after discharge. She states she does not have the money to pay for HST evaluation and nor would she have the money to pay for supplies for CPAP machine, even if it was given to her free of charge as a used CPAP device. I explained that the charges for the HST would be $250 and that for the use CPAP machine supplies, that that charge would be about $150. She states that she could not afford either and would prefer to wait until August. I told her to contact us at the sleep lab and will certainly be happy to evaluate her when she is able to follow-up in sleep clinic and desires to proceed with evaluation. [facility] could [facility] evaluation on her. There may be some form of assistance available to her to help her with her because if she does not have funds available. Current Visit: Yes (2) Paroxysmal a-fib Status: Acute Assessment and plan: Untreated sleep apnea certainly can be a risk factor for atrial fibrillation with the prevalence for obstructive sleep apnea in these patients can be as high as 80%. Treatment of sleep apnea can reduce recurrence by almost 50%. Current Visit: Yes (3) Morbid obesity Status: Acute Assessment and plan: Patient encouraged to continue to work on weight loss thru appropriate dieting and exercise. The combination of weight loss and CPAP therapy for obstructive sleep apnea is better than either therapy alone for obstructive sleep apnea. Current Visit: Yes History of Present Illness Chief complaint: Sleep apnea History of present illness: Ms. Rouse is a 66 year old female admitted with atrial fibrillation. She has a history of snoring and irregular sleep. 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 She sleeps primarily in the day. She does have difficulty at times with maintaining sleep due to frequent urination but associates this with when she drinks tea prior to bedtime. She has never been told that she stops breathing during her sleep but is a loud snore. She does not have any significant issues with restless legs or leg jerks. She has never had prior sleep evaluation before. Home Medications Medication Instructions Recorded Confirmed Type Levothyroxine Tab [Synthroid Tab] 50 mcg PO DAILY@0700 02/28/17 02/28/17 History Omeprazole 20 mg PO QAM 02/28/17 02/28/17 History PARoxetine [Paxil] 10 mg PO QAM 02/28/17 02/28/17 History Verapamil Sr Tab [Calan Sr Tab] 120 mg PO BEDTIME 02/28/17 02/28/17 History Verapamil Sr Tab [Calan Sr Tab] 240 mg PO QAM 02/28/17 02/28/17 History predniSONE TAB [PredniSONE] 10 mg PO QAM 02/28/17 02/28/17 History Allergies Allergy/AdvReac Type Severity Reaction Status Date / Time cefuroxime [From Ceftin] Allergy Swelling Verified 02/28/17 17:40 of Lip/Tongue/Throat Cephalosporins Allergy Swelling Verified 02/28/17 17:40 of Lip/Tongue/Throat iodine Allergy RASH Verified 02/28/17 17:40 Oysters Allergy RASH Verified 02/28/17 17:40 povidone-iodine Allergy RASH Verified 02/28/17 17:40 [From Betadine] soap [From Betadine] Allergy RASH Verified 02/28/17 17:40 Sulfa (Sulfonamide Allergy ITCHING Verified 02/28/17 17:40 Antibiotics) Review of systems: Otherwise unremarkable from a sleep standpoint. Exam (Pulmonay) H&P - Constitutional Vitals: Period Temp Pulse Resp BP Sys/Rowe Pulse Ox Last 24 Hr 96.4 F-98.8 F 73-110 12-24 125-160/62-107 93-100 Exam: She is alert and responsive in no acute distress. Pupils equal round reactive to light and accommodation. Extraocular movements intact. Oropharynx with a class III Mallampati exam. Neck is supple without adenopathy or thyromegaly. No supraclavicular adenopathy is noted. Chest with symmetrical breath sounds without focal wheeze, rhonchi, or rales. Cardiac exam reveals a regular rhythm without murmur or gallop. Abdomen obese nontender without palpable hepatosplenomegaly or mass. Extremities with chronic venous insufficiency changes bilaterally. Neurologically, she is grossly intact. She moves all extremities with good strength. She answers questions appropriately. Medical,Surgical,& Family Hx - Medical History Cardio: History of: Cardiac Dysrhythmia (svt) Psychological: History of: Anxiety Disorders, Depression Endocrine: History of: Thyroid Disorder (HYPO) Gastrointestinal: History of: GERD Musculoskeletal: History of: Musculoskeletal Problems (left humerus fx, shoulder dislocation, and rotator cuff tear) - Surgical History Reproductive Surgeries: Surgical HX of;: Hysterectomy (1987) - Family History Family History: Reports;: Family Cancer, Family Heart Disease, Family Stroke - Social History Smoking Status: Never smoker Frequency of Alcohol Use: None Type of Drug Use: None Results - Labs CBC & BMP: 03/01/17 04:54 03/01/17 04:54 Lab Results: I have reviewed the past 24 hour labs Labs: TSH is appropriately suppressed on thyroid replacement therapy.
--- NOTE | 2017-03-01 12:58 | ECHO Report ---
Gans, Susannah Exam Date: 03/01/2017 09:39 Referring Physician: Technologist: marya Oliveira ARDMS, RVT Age: 66 Ht (in): 69 Wt (lb): 356 Gender: F Exam Location: [facility] Echo Indications: Dyspnea, unspecified, Palpitations, Atrial fibrillation, Morbid obesity BP: 132 / 62 HR: 82 Rhythm: Sinus Technical Quality: Technically difficult study due to body habitus (BMI of 53) IMPRESSIONS The overall ejection fraction 60% there is very poor endocardial resolution but no regional wall motion abnormality seen. Grade 1 diastolic dysfunction or impaired relaxation. 3 chamber cardiac enlargement This is a technically limited study the patient has a BMI 52. MEASUREMENTS (Male / Female) Normal Values 2D ECHO LV Diastolic Diameter PLAX 5.7 cm 4.2 - 5.9 / 3.9 - 5.3 cm LV Systolic Diameter PLAX 2.5 cm LV Fractional Shortening PLAX 56.8 % IVS Diastolic Thickness 1.0 cm 0.6 - 1.0 / 0.6 - 0.9 cm LVPW Diastolic Thickness 1.1 cm 0.6 - 1.0 / 0.6 - 0.9 cm RV Internal Dim ED PLAX 4.1 cm Aortic Root Diameter 3.2 cm LA Systolic Diameter LX 5.1 cm 3.0 - 4.0 / 2.7 - 3.8 cm FINDINGS Left Ventricle This is a technically limited study the patient has a BMI 52. The overall ejection fraction 60% there is very poor endocardial resolution but no regional wall motion abnormality seen. Grade 1 diastolic dysfunction or impaired relaxation Right Ventricle Enlarged Right Atrium Enlarged Left Atrium Enlarged Mitral Valve Mitral valve appears to be normal there is mild mitral and calcification Aortic Valve Aortic valve is normal Tricuspid Valve Tricuspid valve is normal Pulmonic Valve Pulmonic valve is normal Pericardium No effusion Aorta Limited visualization of the thoracic aorta is normal Charlene Moses (Electronically Signed) Final Date: 01 March 2017 12:57
--- NOTE | 2017-03-01 12:59 | EKG Report ---
Stationary ECG Study [facility] Test Date: 03/01/2017 12:58:49 PM Pat Name: FIFI FONG Department: Room: 279 Gender: F Gatekeeper: SANJAY : 1950 Requested by: Robert Randle Order Number: [id number] Lennox MD: MONIE PICHARDO Intervals [place] Rate: 90 P: 59 SD: 320 QRS: 44 QRSD: 88 T: 40 QT: 334 QTc: 382 Interpretive Statements SINUS RHYTHM WITH PROLONGED SD INTERVAL NONSPECIFIC T-WAVE ABNORMALITY Electronically Signed On 03-01-17 15:47:04 CDT by MONIE PICHARDO [email or web address]
[2017-03-01] MEDS ORDERED: APIXABAN 5 MG TABLET PO SCH (13:00)
--- NOTE | 2017-03-01 15:35 | Discharge Summary ---
Hospital Course - Hospital Course Hospital Course: Ms. Blue is a 66-year-old white female that was admitted to their the emergency department with tachycardia and dyspnea on exertion with paroxysmal atrial fibrillation. The patient is rate controlled with K [place] to 40 in the morning and 120 at night. She was started on Eliquis 5 mg twice daily at the recommendation of cardiology. There is a high suspicion that she has obstructive sleep apnea and she has been referred to Dr. Alves. She was seen in the hospital by Dr. Ninfa banks for cardiology and Dr. Alves. A outpatient sleep study will be set up. The patient will be started on full anticoagulation with Eliquis and discharged home. She plans to follow-up with her independent marketing consultant Dr. Saunders as an outpatient. She feels much better and is rate controlled in the 80s. She is not short of breath. During the course of the patient's workup, it was noted that she had elevated blood sugars and her hemoglobin A1c was 7. Metformin is being added to her home medications and she will need to follow-up with her primary care physician for management of new onset diabetes likely secondary to her morbid obesity. - Time spent with patient Time with patient DS: Greater than 30 minutes (Total discharge time for this patient, including [id number] time, clinical documentation, medication reconciliation, and discharge planning was 44 minutes.) Diagnosis - Discharge Diagnosis (1) Exertional dyspnea Status: Chronic (2) Morbid obesity Status: Chronic (3) Paroxysmal a-fib Status: Acute (4) Unspecified sleep apnea Status: Chronic Discharge Plan - Discharge Data Disposition: Disch To Home/Self Care Condition at Discharge: Stable Discharge Diet: diabetic diet Activity: resume usual activities as tolerated Hygiene: no restrictions Weight Bearing at Discharge: full weight bearing Driving: no restrictions Contact your physician if you experience:: fever over 101 - Discharge Medications New metFORMIN [Glucophage] 500 mg PO BID W/MEALS #60 tablet Apixaban [Eliquis] 5 mg PO BID #60 tablet Continue predniSONE TAB [PredniSONE] 10 mg PO QAM Omeprazole 20 mg PO QAM Verapamil Sr Tab [Calan Sr Tab] 120 mg PO BEDTIME PARoxetine [Paxil] 10 mg PO QAM Verapamil Sr Tab [Calan Sr Tab] 240 mg PO QAM Levothyroxine Tab [Synthroid Tab] 50 mcg PO DAILY@0700 - Follow Up or Referral - Forms/Instructions Additional Discharge Instructions: Follow-up with primary care physician. Follow diabetic diet. Follow-up with Dr. Saunders. Exam - Constitutional Vitals: Period Temp Pulse Resp BP Sys/Rowe Pulse Ox Last 24 Hr 96.4 F-98.8 F 73-110 12-24 125-160/62-107 93-100 Discharge Results Procedures and tests throughout hospitalization: Pending Orders 02/28/17 21:10 Blood Culture Stat 03/02/17 04:00 BMP w/ Mg [Basic Metabolic Panel w/Mg] IN AM CBC [Comp Blood Count Auto Diff] IN AM 03/03/17 04:00 BMP w/ Mg [Basic Metabolic Panel w/Mg] IN AM CBC [Comp Blood Count Auto Diff] IN AM 03/04/17 04:00 BMP w/ Mg [Basic Metabolic Panel w/Mg] IN AM CBC [Comp Blood Count Auto Diff] IN AM 03/05/17 04:00 BMP w/ Mg [Basic Metabolic Panel w/Mg] IN AM CBC [Comp Blood Count Auto Diff] IN AM Labs on day of discharge: Labs from last 24 hours 03/01/17 03/01/17 03/01/17 10:09 04:54 04:54 WBC RBC Hgb Hct MCV MCH MCHC RDW Plt Count MPV Neut % (Auto) Lymph % (Auto) [place] % (Auto) Eos % (Auto) Baso % (Auto) Neut # (Auto) Lymph # (Auto) [place] # (Auto) Eos # (Auto) Baso # (Auto) Immature Gran % Nucleated RBC % Immature Gran # Nucleated RBCs # INR PT Patient/Control Mix D-Dimer, Quantitative 0.8 ABG pH ABG pCO2 ABG pO2 ABG HCO3 ABG Total CO2 ABG O2 Saturation ABG Base Excess FiO2 Sodium Potassium Chloride Carbon Dioxide Anion Gap BUN Creatinine GFR Calculation BUN/Creatinine Ratio Glucose Hemoglobin A1c 7.0 H Calculated Osmolality Calcium Magnesium Total Bilirubin AST ALT Alkaline Phosphatase Troponin I B-Natriuretic Peptide Total Protein Albumin Globulin Albumin/Globulin Ratio Triglycerides Cholesterol LDL Cholesterol VLDL Cholesterol HDL Cholesterol Heart Disease Risk Ratio Free T4 1.20 TSH 3rd Generation Urine Color Urine Appearance Urine pH Ur Specific [place] Urine Protein Urine Glucose (UA) Urine Ketones Urine Blood Urine Nitrate Urine Bilirubin Urine Urobilinogen Urine Leukocytes Urine RBC Urine WBC Ur Squamous Epith Cells Urine Bacteria Hyaline Casts Urine Mucus Ur Culture Indicated? Urine Opiates Screen Ur Barbiturates Screen Ur Phencyclidine Scrn U Amphetamine/Methamph U Benzodiazepines Scrn U Cocaine Metab Screen U Cannabinoids Screen 03/01/17 03/01/17 02/28/17 04:54 04:54 21:00 WBC 9.9 D RBC 4.95 Hgb 15.7 Hct 46.8 MCV 94.5 MCH 32 MCHC 33.5 RDW 12.8 Plt Count 326 MPV 10.7 Neut % (Auto) 87.5 H Lymph % (Auto) 10.8 L [place] % (Auto) 0.7 L Eos % (Auto) 0.0 Baso % (Auto) 0.2 Neut # (Auto) 8.7 H Lymph # (Auto) 1.1 L [place] # (Auto) 0.1 L Eos # (Auto) 0.0 Baso # (Auto) 0.0 Immature Gran % 0.8 Nucleated RBC % 0.0 Immature Gran # 0.08 Nucleated RBCs # 0.00 INR PT Patient/Control Mix D-Dimer, Quantitative ABG pH ABG pCO2 ABG pO2 ABG HCO3 ABG Total CO2 ABG O2 Saturation ABG Base Excess FiO2 Sodium 139 Potassium 4.9 Chloride 100 Carbon Dioxide 29 Anion Gap 14.9 BUN 18 Creatinine 1.00 GFR Calculation 91 BUN/Creatinine Ratio 18.00 Glucose 288 H Hemoglobin A1c Calculated Osmolality 289.5 Calcium 9.9 Magnesium Total Bilirubin < 0.39 AST 18 ALT 39 Alkaline Phosphatase 94 Troponin I B-Natriuretic Peptide Total Protein 7.3 Albumin 3.4 Globulin 3.9 H Albumin/Globulin Ratio 0.8 L Triglycerides 114 Cholesterol 186 LDL Cholesterol 128.0 VLDL Cholesterol 22.8 HDL Cholesterol 48 Heart Disease Risk Ratio 3.88 Free T4 TSH 3rd Generation 0.177 L Urine Color Urine Appearance Urine pH Ur Specific [place] Urine Protein Urine Glucose (UA) Urine Ketones Urine Blood Urine Nitrate Urine Bilirubin Urine Urobilinogen Urine Leukocytes Urine RBC Urine WBC Ur Squamous Epith Cells Urine Bacteria Hyaline Casts Urine Mucus Ur Culture Indicated? Urine Opiates Screen Negative Ur Barbiturates Screen Negative Ur Phencyclidine Scrn Negative U Amphetamine/Methamph Negative U Benzodiazepines Scrn Negative U Cocaine Metab Screen Negative U Cannabinoids Screen Negative 02/28/17 02/28/17 02/28/17 21:00 19:37 19:37 WBC RBC Hgb Hct MCV MCH MCHC RDW Plt Count MPV Neut % (Auto) Lymph % (Auto) [place] % (Auto) Eos % (Auto) Baso % (Auto) Neut # (Auto) Lymph # (Auto) [place] # (Auto) Eos # (Auto) Baso # (Auto) Immature Gran % Nucleated RBC % Immature Gran # Nucleated RBCs # INR PT Patient/Control Mix D-Dimer, Quantitative ABG pH ABG pCO2 ABG pO2 ABG HCO3 ABG Total CO2 ABG O2 Saturation ABG Base Excess FiO2 Sodium 140 Potassium 4.5 Chloride 102 Carbon Dioxide 27 Anion Gap 15.5 H BUN 15 Creatinine 0.90 GFR Calculation 103 BUN/Creatinine Ratio 16.00 Glucose 159 H Hemoglobin A1c Calculated Osmolality 282.4 Calcium 9.9 Magnesium 1.9 Total Bilirubin < 0.39 AST 27 ALT 41 Alkaline Phosphatase 99 Troponin I < 0.015 B-Natriuretic Peptide 69 Total Protein 7.3 Albumin 3.4 Globulin 3.9 H Albumin/Globulin Ratio 0.8 L Triglycerides Cholesterol LDL Cholesterol VLDL Cholesterol HDL Cholesterol Heart Disease Risk Ratio Free T4 TSH 3rd Generation Urine Color Yellow Urine Appearance Clear Urine pH 5.0 Ur Specific [place] 1.011 Urine Protein Negative Urine Glucose (UA) Negative Urine Ketones Negative Urine Blood Small Urine Nitrate Negative Urine Bilirubin Negative Urine Urobilinogen < 2.0 H Urine Leukocytes Negative Urine RBC <1 Urine WBC 1 Ur Squamous Epith Cells Occasional Urine Bacteria Occasional Hyaline Casts 2 Urine Mucus Occasional Ur Culture Indicated? Not indicated Urine Opiates Screen Ur Barbiturates Screen Ur Phencyclidine Scrn U Amphetamine/Methamph U Benzodiazepines Scrn U Cocaine Metab Screen U Cannabinoids Screen 02/28/17 02/28/17 02/28/17 19:37 19:37 19:09 WBC 15.6 H RBC 5.17 Hgb 16.3 H Hct 48.3 H MCV 93.4 MCH 32 MCHC 33.7 RDW 12.7 Plt Count 335 MPV 10.5 Neut % (Auto) 73.8 Lymph % (Auto) 19.7 L [place] % (Auto) 5.1 Eos % (Auto) 0.3 Baso % (Auto) 0.4 Neut # (Auto) 11.5 H Lymph # (Auto) 3.1 [place] # (Auto) 0.8 Eos # (Auto) 0.0 Baso # (Auto) 0.1 Immature Gran % 0.7 Nucleated RBC % 0.0 Immature Gran # 0.11 Nucleated RBCs # 0.00 INR 1.0 PT Patient/Control Mix 10.0 D-Dimer, Quantitative 0.7 ABG pH 7.404 ABG pCO2 40.7 ABG pO2 88.0 ABG HCO3 25.0 ABG Total CO2 21.3 L ABG O2 Saturation 96.6 ABG Base Excess 0.7 FiO2 28.00 Sodium Potassium Chloride Carbon Dioxide Anion Gap BUN Creatinine GFR Calculation BUN/Creatinine Ratio Glucose Hemoglobin A1c Calculated Osmolality Calcium Magnesium Total Bilirubin AST ALT Alkaline Phosphatase Troponin I B-Natriuretic Peptide Total Protein Albumin Globulin Albumin/Globulin Ratio Triglycerides Cholesterol LDL Cholesterol VLDL Cholesterol HDL Cholesterol Heart Disease Risk Ratio Free T4 TSH 3rd Generation Urine Color Urine Appearance Urine pH Ur Specific [place] Urine Protein Urine Glucose (UA) Urine Ketones Urine Blood Urine Nitrate Urine Bilirubin Urine Urobilinogen Urine Leukocytes Urine RBC Urine WBC Ur Squamous Epith Cells Urine Bacteria Hyaline Casts Urine Mucus Ur Culture Indicated? Urine Opiates Screen Ur Barbiturates Screen Ur Phencyclidine Scrn U Amphetamine/Methamph U Benzodiazepines Scrn U Cocaine Metab Screen U Cannabinoids Screen DS: Provider Date of admission: 02/28/17 21:48 Primary care physician: . No PCP Attending physician on admission: Son Maldonado MD Consults: 02/28/17 22:32 Consult to Physician [CONS] Routine Comment: Consulting Provider: Cardiology - [facility] When should Consulting Provider be notified: In am Person Notified: Constanza Date Notified: 03/01/17 Time Notified: 07:35 Consult to Physician [CONS] Routine Comment: sleep consult Consulting Provider: Matilde Alves Person Notified: Alma Date Notified: 03/01/17 Time Notified: 07:35 Discharging clinician: Costa Michaud MD Expected date of discharge: 03/01/17
== END 2017-03-01 16:50 | disposition home or self-care (01) ==
LOC: N.ED 17:36 → N.EDINP 17:36 → SUATTDRO 21:48 → N.TELES 22:42
PROVIDERS: ADMIT Internal Medicine; ATTEND Family Medicine

== ENCOUNTER 2021-06-06 11:16 | Inpatient (IN) ==
[2021-06-06] MEDS ORDERED: SODIUM CHLORIDE 0.9% 1,000 ML IV STA ×3 (11:35→13:02)
[2021-06-06 12:03] LABS: Bilirubin,Urine Negative (Negative); Blood, Urine Negative (Negative); Glucose,Urine (UA) Negative (Negative); Ketones,Urine Negative (Negative); Mucus,Urine Occasional /LPF (Occasional); Nitrite,Urine Negative (Negative); Protein,Urine Negative; RBC,Urine 1 /HPF (0-4); Squamous Epithelial Cell,Urine Occasional /HPF (0-10); Urine Appearance CLEAR (Clear); Urine Color Yellow (Yellow); Urine Specific Gravity 1.015 (1.001-1.035); Urine Urobilinogen < 2.0 EU/DL (0.2-1.0)
[2021-06-06 12:11] LABS: Barbiturates Screen,Urine Negative (Negative); Benzodiazepines Screen,Urine Negative (Negative); Cannabinoid Screen,Urine Negative (Negative); Opiate Screen,Urine Negative (Negative); Phencyclidine Screen,Urine Negative (Negative)
[2021-06-06 12:12] LABS: Basophils # 0.1 10*3/uL (0.0-0.2); Basophils % 0.4 % (0.0-0.8); Eosinophils # 0.2 10*3/uL (0.0-0.87); Eosinophils % 1.3 % (0.00-10.9); Hematocrit 37.7 VOL% (35.7-47.0); Hemoglobin 11.9 GM/DL (12.0-16.0); Immature Granulocytes % 0.8 %; Immature Granulocytes Absolute 0.11 #; Lymphocytes # 3.3 10*3/uL (1.4-4.0); Lymphocytes % 24.6 % (21.3-54.2); Mean Corpuscular HGB Conc 31.6 GM/DL (32-36); Mean Corpuscular Volume 95.2 FL (87-102); Mean Platelet Volume 10.3 FL (9.6-12.0); Monocytes % 7.9 % (1.7-12.7); Platelet Count 285 T/CUMM (130-400); Red Blood Count 3.96 MC/CUMM (3.8-5.5); Red Cell Distribution Width 13.1 % (9.3-17.3); White Blood Count 13.5 T/CUMM (4-12)
[2021-06-06 12:27] LABS: Alanine Aminotransferase 12 U/L (13-56); Albumin 2.3 G/DL (3.4-5.0); Alkaline Phosphatase 47 U/L (45-117); Aspartate Amino Transferase 11 U/L (0-37); Bilirubin,Total < 0.39 MG/DL (0.20-1.00); Blood Urea Nitrogen 12 MG/DL (7-18); Calcium 6.9 MG/DL (8.5-10.1); Carbon Dioxide 24 MMOL/L (21-32); Estimated Glom Filtration Rate 126 ML/MIN; Glucose 72 MG/DL (74-106); Osmolality,Calculated 290.4 MOS/KG (273-304); Potassium 3.1 MMOL/L (3.5-5.1); Sodium 147 MMOL/L (136-145); Total Protein 5.4 G/DL (6.4-8.2)
[2021-06-06] MEDS ORDERED: DEXTROSE 50% 25 GM/50 ML SYRINGE IV ONE (13:19)
[2021-06-06] MEDS ORDERED: ONDANSETRON 4 MG/2 ML VIAL IV PRN (13:53)
[2021-06-06] MEDS ORDERED: GLUCAGON 1 MG VIAL IM PRN (13:53)
[2021-06-06] MEDS ORDERED: ALBUTEROL/IPRATROPIUM 3 ML NEB RESP TX PRN (13:53)
[2021-06-06] MEDS ORDERED: DEXTROSE 50% 25 GM/50 ML VIAL IV PRN (13:53)
[2021-06-06] MEDS ORDERED: hydrALAZINE 20 MG/1 ML VIAL IV PRN (13:53)
[2021-06-06] MEDS ORDERED: ACETAMINOPHEN 325 MG TABLET PO PRN (13:53)
[2021-06-06] MEDS ORDERED: POTASSIUM CHLORIDE 20 MEQ TABLET PO ONE (13:57)
[2021-06-06] MEDS: methylPREDNISolone SOD SUC 40 MG/1 ML VIAL IV SCH ×2 (15:26→22:47)
[2021-06-06] MEDS: LACTATED RINGERS 1,000 ML IV SCH (15:35)
[2021-06-06] MEDS: CLINDAMYCIN INJ 600 MG/50 ML PREMIX IV SCH ×2 (15:35→20:35)
[2021-06-06] MEDS: INSULIN LISPRO 100 UNIT/ML SUBCUT SCH ×2 (15:45→20:47)
[2021-06-07] MEDS: CLINDAMYCIN INJ 600 MG/50 ML PREMIX IV SCH ×4 (02:53→22:15)
[2021-06-07] MEDS: LACTATED RINGERS 1,000 ML IV SCH ×3 (05:15→22:14)
[2021-06-07 06:13] LABS: Calcium 9.3 MG/DL (8.5-10.1); Osmolality,Calculated 275.8 MOS/KG (273-304); Potassium 4.6 MMOL/L (3.5-5.1); Risk Ratio 3.18; Thyroid Stimulating Hormone 0.304 uIU/ml (0.358-3.74); VLDL Cholesterol 17.4 MG/DL
[2021-06-07] MEDS: methylPREDNISolone SOD SUC 40 MG/1 ML VIAL IV SCH ×3 (06:19→22:25)
[2021-06-07 06:29] LABS: Basophils % 0.2 % (0.0-0.8); Hematocrit 44.9 VOL% (35.7-47.0); Hemoglobin 14.1 GM/DL (12.0-16.0); Immature Granulocytes % 1.6 %; Lymphocytes # 1.3 10*3/uL (1.4-4.0); Lymphocytes % 10.2 % (21.3-54.2); Mean Corpuscular HGB Conc 31.4 GM/DL (32-36); Mean Corpuscular Volume 95.1 FL (87-102); Mean Platelet Volume 10.9 FL (9.6-12.0); Monocytes % 0.8 % (1.7-12.7); Neutrophils % 87.2 % (38.7-73.9); Platelet Count 332 T/CUMM (130-400); Red Blood Count 4.72 MC/CUMM (3.8-5.5); Red Cell Distribution Width 13.1 % (9.3-17.3); White Blood Count 12.9 T/CUMM (4-12)
[2021-06-07] MEDS ORDERED: MAGNESIUM SULF RIDER 2 GM/50 ML PREMIX IV ONE (07:11)
[2021-06-07 07:41] LABS: Free T4 (Free Thyroxine) 0.98 NG/DL (0.76-1.46)
[2021-06-07] MEDS: INSULIN LISPRO 100 UNIT/ML SUBCUT SCH ×4 (08:50→22:26)
[2021-06-07] MEDS: MONTELUKAST 10 MG TABLET PO SCH (09:56)
[2021-06-07] MEDS: PANTOPRAZOLE 40 MG TABLET PO SCH (09:56)
[2021-06-07] MEDS: CHOLECALCIFEROL 5,000 UNIT TABLET PO SCH (09:56)
[2021-06-07] MEDS: LOSARTAN 50 MG TABLET PO SCH (09:56)
[2021-06-07] MEDS: APIXABAN 5 MG TABLET PO SCH ×2 (09:56→22:15)
[2021-06-07] MEDS: IPRATROPIUM 0.06% NASAL SPRAY 15 ML BOTTLE BOTH NARES SCH ×4 (10:17→22:25)
[2021-06-07] MEDS ORDERED: ATORVASTATIN 40 MG TABLET PO SCH (21:00)
[2021-06-07] MEDS: PARoxetine 10 MG TABLET PO SCH (22:15)
[2021-06-07] MEDS: ATORVASTATIN 40 MG TABLET PO SCH (22:15)
[2021-06-08] MEDS: CLINDAMYCIN INJ 600 MG/50 ML PREMIX IV SCH ×4 (03:14→21:28)
[2021-06-08 05:31] LABS: Basophils # 0.1 10*3/uL (0.0-0.2); Basophils % 0.3 % (0.0-0.8); Hematocrit 41.2 VOL% (35.7-47.0); Hemoglobin 13.7 GM/DL (12.0-16.0); Immature Granulocytes % 1.7 %; Immature Granulocytes Absolute 0.26 #; Lymphocytes # 1.3 10*3/uL (1.4-4.0); Lymphocytes % 8.2 % (21.3-54.2); Mean Corpuscular HGB Conc 33.3 GM/DL (32-36); Mean Platelet Volume 10.8 FL (9.6-12.0); Monocytes % 3.1 % (1.7-12.7); Neutrophils % 86.7 % (38.7-73.9); Platelet Count 311 T/CUMM (130-400); Red Blood Count 4.29 MC/CUMM (3.8-5.5); Red Cell Distribution Width 13.2 % (9.3-17.3); White Blood Count 15.3 T/CUMM (4-12)
[2021-06-08] MEDS: LEVOTHYROXINE 25 MCG TABLET PO SCH (06:01)
[2021-06-08] MEDS: methylPREDNISolone SOD SUC 40 MG/1 ML VIAL IV SCH ×3 (06:02→16:47)
[2021-06-08 06:40] LABS: Calcium 9.1 MG/DL (8.5-10.1); Osmolality,Calculated 280.5 MOS/KG (273-304); Potassium 4.8 MMOL/L (3.5-5.1)
[2021-06-08] MEDS: ASPIRIN EC 81 MG TABLET PO SCH (08:40)
[2021-06-08] MEDS: MONTELUKAST 10 MG TABLET PO SCH (08:40)
[2021-06-08] MEDS: PANTOPRAZOLE 40 MG TABLET PO SCH (08:40)
[2021-06-08] MEDS: VERAPAMIL SR 240 MG TABLET PO SCH (08:40)
[2021-06-08] MEDS: CHOLECALCIFEROL 5,000 UNIT TABLET PO SCH (08:40)
[2021-06-08] MEDS: APIXABAN 5 MG TABLET PO SCH ×2 (08:40→21:28)
[2021-06-08] MEDS: LOSARTAN 50 MG TABLET PO SCH (08:40)
[2021-06-08] MEDS: IPRATROPIUM 0.06% NASAL SPRAY 15 ML BOTTLE BOTH NARES SCH ×4 (08:42→21:27)
[2021-06-08] MEDS: LACTATED RINGERS 1,000 ML IV SCH ×3 (11:22→23:36)
[2021-06-08] MEDS: INSULIN LISPRO 100 UNIT/ML SUBCUT SCH ×4 (12:03→21:33)
[2021-06-08] MEDS ORDERED: METOPROLOL TARTRATE 25 MG TABLET PO SCH (21:00)
[2021-06-08] MEDS: ATORVASTATIN 40 MG TABLET PO SCH (21:28)
[2021-06-08] MEDS: PARoxetine 10 MG TABLET PO SCH (21:28)
[2021-06-09] MEDS: methylPREDNISolone SOD SUC 40 MG/1 ML VIAL IV SCH ×2 (00:23→08:35)
[2021-06-09] MEDS: LACTATED RINGERS 1,000 ML IV SCH (01:35)
[2021-06-09] MEDS: CLINDAMYCIN INJ 600 MG/50 ML PREMIX IV SCH ×2 (01:48→08:36)
[2021-06-09 05:15] LABS: Basophils % 0.2 % (0.0-0.8); Hematocrit 39.3 VOL% (35.7-47.0); Hemoglobin 13.2 GM/DL (12.0-16.0); Immature Granulocytes % 2.6 %; Immature Granulocytes Absolute 0.32 #; Lymphocytes % 8.1 % (21.3-54.2); Mean Corpuscular HGB Conc 33.6 GM/DL (32-36); Mean Corpuscular Volume 95.4 FL (87-102); Mean Platelet Volume 10.7 FL (9.6-12.0); Monocytes % 4.1 % (1.7-12.7); Platelet Count 306 T/CUMM (130-400); Red Blood Count 4.12 MC/CUMM (3.8-5.5); Red Cell Distribution Width 13.2 % (9.3-17.3); White Blood Count 12.5 T/CUMM (4-12)
[2021-06-09 05:37] LABS: Calcium 8.4 MG/DL (8.5-10.1); Osmolality,Calculated 283.4 MOS/KG (273-304); Potassium 4.5 MMOL/L (3.5-5.1)
[2021-06-09] MEDS: LEVOTHYROXINE 25 MCG TABLET PO SCH (06:04)
[2021-06-09] MEDS: INSULIN LISPRO 100 UNIT/ML SUBCUT SCH ×2 (08:33→12:36)
[2021-06-09] MEDS: CHOLECALCIFEROL 5,000 UNIT TABLET PO SCH (08:34)
[2021-06-09] MEDS: APIXABAN 5 MG TABLET PO SCH (08:34)
[2021-06-09] MEDS: PANTOPRAZOLE 40 MG TABLET PO SCH (08:34)
[2021-06-09] MEDS: VERAPAMIL SR 240 MG TABLET PO SCH (08:34)
[2021-06-09] MEDS: IPRATROPIUM 0.06% NASAL SPRAY 15 ML BOTTLE BOTH NARES SCH (08:34)
[2021-06-09] MEDS: MONTELUKAST 10 MG TABLET PO SCH (08:35)
[2021-06-09] MEDS: ASPIRIN EC 81 MG TABLET PO SCH (08:35)
[2021-06-09] MEDS: LOSARTAN 50 MG TABLET PO SCH (08:35)
[2021-06-09] MEDS ORDERED: METOPROLOL TARTRATE 25 MG TABLET PO SCH (09:00)
[2021-06-09] MEDS ORDERED: methylPREDNISolone SOD SUC 40 MG/1 ML VIAL IV SCH (10:03)
[2021-06-09 13:11] VITALS: BP 158/85
== END 2021-06-09 15:58 | disposition home or self-care (01) | DRG 64 ==
LOC: EDUNIT# → EDBD → N.ED 11:16 → N.EDINP 13:53 → INTOOBSV 13:53 → N.TELEN 14:33
PROVIDERS: ADMIT Internal Medicine; ATTEND Internal Medicine